=== PATIENT | male | born 1995 | race Caucasian/White ===

== ENCOUNTER 2018-10-11 16:45 | Emergency (ER) | payer OTHER, SELFPAY ==
[~2018-10-11] VITALS: Ht 177.8 cm; Wt 64.9 kg
--- NOTE | 2018-10-11 19:33 | REP ---
Right small finger series: Four views. History: Injury. Findings: Four views of the right small finger demonstrate dorsal dislocation of the PIP joint. There is evidence of a chip fracture along the volar surface of the base of the middle phalanx. Fracture fragment is not visible. There is associated swelling. Impression: Dorsal fracture dislocation PIP joint small finger. Electronically Signed by Brian Pulliam MD 10/11/2018 07:33 P
[2018-10-11 20:19] VITALS: BP 138/79
[2018-10-11] MEDS ORDERED: LIDOCAINE 2% MDV 20 ML VIAL SC ONE (20:30)
--- NOTE | 2018-10-12 07:51 | REP ---
Fifth digit right hand four views: There is a questionable a avulsion fracture at the base of the middle phalange on one-view. This should be correlated with clinical point tenderness. No other fractures are identified. There is no dislocation. Mineralization joint spaces otherwise are unremarkable. Impression: Questionable a avulsion fracture as described. Correlate with clinical point tenderness. Electronically Signed by Khadar Mathew MD 10/12/2018 07:42 A
== END 2018-10-11 21:45 | disposition home or self-care (01) ==
LOC: M ED 16:45
DX: S62.606B Fracture of unspecified phalanx of right little finger, initial encounter for open fracture (principal); S63.256A Unspecified dislocation of right little finger, initial encounter; X58.XXXA Exposure to other specified factors, initial encounter; Y92.018 Other place in single-family (private) house as the place of occurrence of the external cause

== ENCOUNTER 2019-03-30 16:21 | Emergency (ER) | payer OTHER, SELFPAY ==
[~2019-03-30] VITALS: Ht 177.8 cm; Wt 66.9 kg
[2019-03-30 16:21] VITALS: BP 143/93
[2019-03-30] MEDS ORDERED: ONDANSETRON 4MG/2ML VIAL (J2405) IV ONE (20:45)
[2019-03-30] MEDS ORDERED: KETOROLAC 30 MG/ML VIAL (J1885) IV ONE (20:45)
[2019-03-30] MEDS ORDERED: NS 1,000 ML IV ONE (20:45)
--- NOTE | 2019-03-31 12:07 | REP ---
Clinical: Cough with inhalational exposure to chemical compound . Comparison: None . Technique: PA and lateral. Findings: The mediastinum and cardiac silhouette are normal. The lung gray are clear and without acute consolidation, effusion, or pneumothorax. The skeletal structures are intact and normal. Impression: 1. No acute cardiopulmonary process. Electronically Signed by Adam Earl MD 03/31/2019 11:59 A
== END 2019-03-30 22:04 | disposition home or self-care (01) ==
LOC: M ED 16:21
DX: Z77.098 Contact with and (suspected) exposure to other hazardous, chiefly nonmedicinal, chemicals (principal); R11.0 Nausea; R51 Headache; R05 Cough
CPT/HCPCS: 71046; 96361; 96374; 99284; J1885